=== PATIENT | female | born 1950 | race Caucasian/White ===

== ENCOUNTER → 2024-06-30 13:59 | Outpatient (BNVA) | payer MEDICARE, SELFPAY | PROVIDERS: PCP Student in an Organized Health Care Education/Training Program; Referring Provider Student in an Organized Health Care Education/Training Program; Visit Provider Student in an Organized Health Care Education/Training Program | DX: M16.11 Unilateral primary osteoarthritis, right hip (principal); M17.11 Unilateral primary osteoarthritis, right knee; M23.91 Unspecified internal derangement of right knee | CPT/HCPCS: 99203; 99204 ==

== ENCOUNTER 2024-11-03 14:58 | Outpatient (CLI) | payer MEDICARE, SELFPAY ==
--- NOTE | 2024-11-03 09:53 | DI.RAD_ITS ---
Exam(s) XR PELVIS AP EXAM: XR PELVIS AP CLINICAL HISTORY: PRE OP R HIP. TECHNIQUE: 2D digital imaging was performed. COMPARISON: CR XR HIP MIN 2V RT from 02/28/2024 FINDINGS: Single AP supine view of the pelvis-hips Previously described degenerative changes in the right hip appears similar to 02/28/2024. Significantly less degenerative changes evident in the opposite- left hip. Bone density normal. No osseous lesions. IMPRESSION: Significant degenerative changes in the right hip. DATA REPOSITORY: RADIATION DOSE DELIVERED:
== END 2024-11-03 14:59 | disposition home or self-care (01) ==
LOC: DIORS 14:58
PROVIDERS: PCP Student in an Organized Health Care Education/Training Program; Visit Provider Physician Assistant
DX: Z01.818 Encounter for other preprocedural examination (principal); M16.11 Unilateral primary osteoarthritis, right hip
CPT/HCPCS: 99024; 72170

== ENCOUNTER 2024-11-03 19:16 | Outpatient (REF) | payer MEDICARE, SELFPAY ==
[2024-11-03 15:58] LABS: HCT 40.4 % (36.0-46.0); HGB 13.1 g/dL (11.2-15.7); MCH 29.7 pg (27.0-33.0); MCHC 32.4 % (32.0-36.0); MCV 92 fL (80-95); MPV 10.5 fL (8.0-11.0); Platelet Count 284 10^3/uL (130-400); RBC 4.41 10^6/uL (3.93-5.22); RDW 12.6 % (11.7-14.6); RDW-SD 42.2 fL; WBC 5.23 10^3/uL (4.4-10.8)
[2024-11-03 16:14] LABS: Anion Gap 10.6 mmol/L (3-11); BUN 12 mg/dL (7-18); CO2 25.4 mmol/L (21.0-32.0); Calcium 8.9 mg/dL (8.5-10.1); Chloride 107 mmol/L (98-107); Estimated GFR 92.97 (mL/min/1.73m2); Glucose 98 mg/dL (74-106); Potassium 3.9 mmol/L (3.5-5.1); Sodium 143 mmol/L (136-145)
== END 2024-11-03 19:17 | disposition home or self-care (01) ==
LOC: LBN 19:16
PROVIDERS: PCP Student in an Organized Health Care Education/Training Program; Visit Provider Student in an Organized Health Care Education/Training Program
DX: M16.11 Unilateral primary osteoarthritis, right hip (principal); Z01.818 Encounter for other preprocedural examination
CPT/HCPCS: 80048; 85027

== ENCOUNTER 2024-11-18 05:46 | Day surgery (SDC) | payer MEDICARE, SELFPAY ==
[2024-11-18] VITALS (14 sets, daily range): BP systolic 94–132; BP diastolic 46–98; PULSE 62–71; RESP 6–27; TEMP 36.2–36.8; O2SAT 97–100; BMI 24.1
[2024-11-18] MEDS: Celecoxib 200 MG CAP 400 MG PO (06:23)
[2024-11-18] MEDS: Acetaminophen 500 MG TAB 1000 MG PO (06:24)
[2024-11-18] MEDS: Lactated Ringers 1,000 ML 80 ML IV (06:45)
--- NOTE | 2024-11-18 07:05 | PDOC.DSDIS_ITS ---
Date of service: 11/18/24 Discharge Plan Disposition Patient Disposition: Home Condition: Good Discharge Details Reason For Visit: Right hip DJD Attending Provider: Danny Yoon Primary Care Provider: Mahi Huber Home Meds and New Rx's Prescriptions: New celecoxib [Celebrex] 200 mg capsule 200 mg PO BID PRNQty: 60 0RF Rx Instructions: Take one tablet twice daily for pain and inflammation aspirin 81 mg tablet,delayed release (DR/EC) 81 mg PO BID 30 Days Qty: 60 0RF acetaminophen 500 mg tablet 1,000 mg PO Q8H PRN Qty: 90 0RF Rx Instructions: Take two tablets up to every 8 hours as needed for pain pantoprazole 40 mg tablet,delayed release (DR/EC) 40 mg PO DAILY Qty: 14 0RF Rx Instructions: Take one tablet once daily dexamethasone 4 mg tablet 4 mg PO DAILY Qty: 2 0RF Rx Instructions: Take one tablet once daily for two days oxycodone 5 mg tablet 5 mg PO Q6H PRNQty: 12 0RF Rx Instructions: Take one tablet up to every 6 hours as needed for severe postoperative pain Discharge Instructions Additional Instructions: Total Hip Discharge Instructions Activity: The most important activity is to walk. You should try to take short walks a few times a day. You have no restrictions on movement or positioning, but do not try to force what you do. You will find some stiffness and weakness with hip flexion (lifting your knee). Do not try to strengthen this too early, continue to practice walking and stairs and this will come. - Outpatient physical therapy can be helpful to help return you to a normal gait and improve your flexibility and strength. This can start around 2 weeks. For some patients, it?s not necessary. Usually this is determined at the time of discharge or at the first post-operative visit. - You should wear the GABRIEL hose on both legs for 2 weeks. Dressing: Keep the surgical dressing in place for at least one week. After the first week it may be removed and replace with light gauze and tape or nothing. It may get wet after 3 days but avoid soaking the dressing. If it gets wet, just lightly pat dry. It is important to always keep some gauze between skin folds, especially when you are sitting. Spend some time with the wound exposed when you are lying flat as the incision does wrinkle onto itself. Medications: - You should take Tylenol and an anti-inflammatory Celebrex as your primary pain control medications. If the Celebrex is too expensive or not covered, please call the office for another alternative (Advil/Ibuprofen or Naproxen/Aleve). - You have been prescribed a stronger pain medication Oxycodone for breakthrough pain, take as needed as prescribed. - You have also been prescribed a stomach acid reduction agent Pantoprozole to help reduce stomach acid and reflux. - You have also been prescribed Decadron to help with post-operative nausea and pain. You will take this for two days starting tomorrow. - You will be taking Aspirin 81mg twice a day for DVT prevention unless instructed otherwise. - If you have constipation you should take Colace or Miralax (both [id number]). It takes most people 3-4 days to have a bowel movement. Follow-up: 2 weeks If you have any acute concerns or questions, please do not hesitate to contact the office at [phone]. You may contact Dr. Yoon with any questions after hours through the hospital at [phone] or on his cell phone at [phone]. Referrals: Danny Yoon MD [ [facility] STAFF PHYSICIAN, Orthopaedic Surgical] Equipment/Supplies: Walker Activity:: Elevate Remove Dressings/Wound Care:: Do Not Remove Shower/Bathe:: Cover Diet:: As Tolerated Discharge Orders Discharge Orders: Discharge Order (Routine); Ordered 11/18/24 Ordered By: Janiya Mcallister
--- NOTE | 2024-11-18 07:09 | W.ANESPRE ---
General Info Date of Service Date Performed: 11/18/24 Height: 5 ft 7.5 in Weight: 71 kg Body Mass Index (BMI): 24.1 Surgical Procedure: Operation Date: 11/18/24 07:50 Proposed Procedure Side Surgeon p Hip Total Hip Anterior, Actis Right Danny Yoon MD Meds Allergies and Home Medications Allergies Allergy/AdvReac Type Severity Reaction Status Date / Time No Known Allergies Allergy Verified 11/18/24 06:06 Home Medication ?Medication ?Instructions ?Recorded acetaminophen 500 mg tablet 1,000 mg (2 x 500 mg) PO Q8H PRN 11/18/24 pain #90 tabs aspirin 81 mg tablet,delayed 81 mg PO BID 30 days #60 tabs 11/18/24 release celecoxib 200 mg capsule (Celebrex) 200 mg PO BID PRN #60 caps 11/18/24 dexamethasone 4 mg tablet 4 mg PO DAILY #2 tabs 11/18/24 oxycodone 5 mg tablet 5 mg PO Q6H PRN #12 tabs 11/18/24 pantoprazole 40 mg tablet,delayed 40 mg PO DAILY #14 tabs 11/18/24 release Current Visit Medications: Current Medications Generic Name Dose Route Start Last Admin Trade Name Freq PRN Reason Stop Dose Admin Acetaminophen 1,000 mg 11/18/24 06:00 11/18/24 06:24 Acetaminophen 500 Mg Tab PO 11/18/24 23:59 1,000 mg PREOP KEMI Administration Celecoxib 400 mg 11/18/24 06:00 11/18/24 06:23 Celecoxib 200 Mg Cap PO 11/18/24 23:59 400 mg PREOP KEMI Administration Hydromorphone HCl 0.5 mg 11/18/24 07:02 Hydromorphone 2 Mg/Ml Syr IVP 12/18/24 07:01 Q2H PRN PRN Ringer's Solution 1,000 mls @ 80 mls/hr 11/18/24 06:00 11/18/24 06:45 IV 11/18/24 23:59 80 mls/hr INFUSION KEMI Administration Cefazolin Sodium/Dextrose 2 gm in 50 mls @ 100 mls/hr 11/18/24 06:00 Ancef Duplex IVPB 11/18/24 23:59 PREOP KEMI Tranexamic Acid/Sodium Chloride 1,000 mg in 100 mls @ 600 mls/hr 11/18/24 06:00 IVPB 11/18/24 23:59 PREOP KEMI Cefazolin Sodium/Dextrose 1 gm in 50 mls @ 100 mls/hr 11/18/24 08:00 Ancef Duplex IVPB 11/19/24 00:29 Q8H KEMI IV Miscellaneous Supplies 1 each 11/18/24 06:00 Iv Access IV 11/18/24 23:59 DIRECTED KEMI Oxycodone HCl 0 mg 11/18/24 07:02 Oxycodone 5 Mg Tab PO 12/18/24 07:01 Q3H PRN PRN Pain Sodium Chloride 0 ml 11/18/24 06:00 Normal Saline Flush 10 Ml Syr IV 11/18/24 23:59 PRN PRN Sodium Chloride 0 ml 11/18/24 06:00 Normal Saline 10 Ml Vial IJ 11/18/24 23:59 DIRECTED PRN Sterile Water 0 ml 11/18/24 06:00 Water,Injection,Sterile 10 Ml Vial IJ 11/18/24 23:59 DIRECTED PRN Tranexamic Acid 1,300 mg 11/18/24 07:02 Tranexamic Acid 650 Mg Tab PO 12/18/24 07:01 ONCE PRN postoperative PFSH Active Problems Active Problems: Problem Status Onset Code Internal derangement of right knee Acute M23.91 Degenerative joint disease of right knee Acute M17.11 Inflammatory arthritis Acute M19.90 Diverticula of intestine Acute K57.30 Senile cataract Acute H25.9 Osteoarthritis of right hip Chronic M16.11 Surgical History Surgical History History of dental surgery History of cataract surgery both eyes History of surgery on lower extremity L leg History of surgery on arm L arm Hx of appendectomy Tobacco Smoking/Tobacco Use Status: Never Alcohol Alcohol Intake: current Alcohol intake frequency: 0-2 drinks per day Alcohol type: wine Substance Use Substance use: Occasionally Substance use type: marijuana Details: wine: t-1, one glass. Marijuana: months Vital Signs and Lab Results Lab Results Complete Blood Count: WBC, (4.4-10.8) 5.23 10^3/uL 11/03/24, 10:40 RBC, (3.93-5.22) 4.41 10^6/uL 11/03/24, 10:40 Hgb, (11.2-15.7) 13.1 g/dL 11/03/24, 10:40 Hct, (36.0-46.0) 40.4 % 11/03/24, 10:40 Plt Count, (130-400) 284 10^3/uL 11/03/24, 10:40 Complete Metabolic Panel: Sodium, (136-145) 143 mmol/L 11/03/24, 10:40 Potassium, (3.5-5.1) 3.9 mmol/L 11/03/24, 10:40 Chloride, (98-107) 107 mmol/L 11/03/24, 10:40 Carbon Dioxide, (21.0-32.0) 25.4 mmol/L 11/03/24, 10:40 BUN, (7-18) 12 mg/dL 11/03/24, 10:40 Creatinine, (0.55-1.02) 0.6 mg/dL 11/03/24, 10:40 Est GFR (CKD-EPI 2020), (mL/min/1.73m2) 92.97 11/03/24, 10:40 Calcium, (8.5-10.1) 8.9 mg/dL 11/03/24, 10:40 Glucose, (74-106) 98 mg/dL 11/03/24, 10:40 Anesthesia Assessment and Plan Anesthesia History Personal History: PONV Family History: No Family History of Anesthesia Complications Exercise Tolerance Exercise Tolerance: Metabolic Equivalents>4 Pertinent Negatives Pertinent Negatives: No Symptoms of GERD, No Major Cardiovascular Symptoms or Complaints, No Major Pulmonary Symptoms or Complaints and No History of CVA/TIA Cardiac & Pulmonary Exam Cardiac Exam: Normal S1/S2 Heart Sounds Pulmonary Exam: Clear Bilateral Breath Sounds Implantable Cardiac Device Does patient have a Pacemaker or an ICD?: No Airway Exam Known Difficult Airway: No Mallampati Class: 2 Mouth Opening: Normal (> 3cm) Thyromental Distance: Greater than 3 cm Neck Range of Motion: Full ROM Neck Circumference: Normal Teeth Condition: Normal Dentition ASA Classification ASA Score: ASA 2 Emergency Case?: No NPO Status NPO Status: NPO Clears >2 hours, Solids >8 hours Anesthesia Plan Resuscitation Status: Full Code Anesthesia Technique: Spinal Anesthesia Airway Planned: Natural Airway Monitors Used: Standard Monitors
--- NOTE | 2024-11-18 07:11 | W.PREOPHP ---
Assessment and Plan Assessment and plan (1) Osteoarthritis of right hip: Status: Chronic Assessment and plan: Sharon is a 74-year-old female who has known arthritis about the right hip. She is here today for hip replacement. She has no questions. I once again reviewed hip replacement with her. I discussed the risk of the surgery to include bleeding, infection, pain, stiffness, weakness, tendinitis, bursitis. She has been cleared by her primary care team. We will proceed today with right hip replacement. History of Present Illness History of Present Illness Chief Complaint: Right hip arthritis Narrative: Magalis is a 74-year-old female who is here today for her right hip. She has severe arthritis of the right hip. Please of the previous office notes for complete detailed history. Please see the most recent history and physical performed by the primary care team. She has no new symptoms. No chest pain or shortness of breath. She has no questions about her right hip replacement and is anxious to proceed. Review of Systems All systems reviewed & are unremarkable except as noted in HPI and below PFSH All Active Problems Internal derangement of right knee (Acute) Degenerative joint disease of right knee (Acute) Inflammatory arthritis (Acute) Diverticula of intestine (Acute) Senile cataract (Acute) Osteoarthritis of right hip (Chronic) Surgical History History of dental surgery History of cataract surgery both eyes History of surgery on lower extremity L leg History of surgery on arm L arm Hx of appendectomy Social History Smoking/Tobacco Use Status: Never Smoking risk assessment performed?: Yes Alcohol Intake: current Alcohol Intake frequency: 0-2 drinks per day Alcohol type: wine Drug use: Occasionally Substance use type: marijuana Details: wine: t-1, one glass. Marijuana: months Housing: house Do you feel safe at home: Yes Do you feel safe in your relationship?: Yes Additional Social history: UTAP Meds Allergies and Home Medications Allergies Allergy/AdvReac Type Severity Reaction Status Date / Time No Known Allergies Allergy Verified 11/18/24 06:06 Home Medications ?Medication ?Instructions ?Recorded ?Confirmed ?Type acetaminophen 500 mg tablet 1,000 mg (2 x 500 mg) PO Q8H PRN 11/18/24 Rx pain #90 tabs aspirin 81 mg tablet,delayed 81 mg PO BID 30 days #60 tabs 11/18/24 Rx release celecoxib 200 mg capsule (Celebrex) 200 mg PO BID PRN #60 caps 11/18/24 Rx dexamethasone 4 mg tablet 4 mg PO DAILY #2 tabs 11/18/24 Rx oxycodone 5 mg tablet 5 mg PO Q6H PRN #12 tabs 11/18/24 Rx pantoprazole 40 mg tablet,delayed 40 mg PO DAILY #14 tabs 11/18/24 Rx release Exam Const General: cooperative, healthy appearing, comfortable and no acute distress Resp Effort & Inspection: normal respiratory effort Auscultation: clear to auscultation bilaterally Cardio Rate: regular rate Rhythm: regular rhythm
[2024-11-18] MEDS: ceFAZolin 2 GM/50 ML BAG IVPB (07:28)
[2024-11-18] MEDS: TRANEXAMIC ACID/SOD. CHL. 1,000 MG/100 ML BAG 600 MG IVPB (07:40)
--- NOTE | 2024-11-18 08:41 | ROE_ITS ---
Operative Note Operative Note PRE-OP DIAGNOSIS: Right Hip Osteoarthritis POST-OP DIAGNOSIS: same PROCEDURE: Right Anterior Total Hip Arthroplasty with Intraoperative Navigation SURGEON: Danny Yoon SCHEME TECHNICIAN: Janiya Mcallister ANESTHESIA TYPE: Spinal Refer to Anesthesia Record ESTIMATED BLOOD LOSS: 50 PATHOLOGY: none sent TOURNIQUET TIME: 0 COMPLICATIONS: None Patient was transported to: PACU Patient's condition: stable Implants: 1. Depuy Shawnee Acetabular Component, 52mm 2. Depuy Acetabular Liner, 86y04ft 3. Depuy Actis Standard Collared Femoral Stem, Size 6 4. Depuy Altrx Ceramic Femoral Head, Size 36+8.5mm Indications: I have seen Magalis in clinic for symptoms of hip arthritis, confirmed with radiographic findings. She has exhausted nonoperative methods and was having significant limitations in daily function and desired better function and less pain. I discussed the technical details of a hip replacement. I explained the risks of the procedure to include, but not limited to, bleeding, infection, pain, stiffness, fracture, damage to nerves and vessels, damage to muscles and tendons, loosening, instability, leg length inequality, need for repeat procedure, blood clot and cardiopulmonary demise. Despite these risks, Magalis elected to proceed. Findings: There was significant signs of arthritis throughout the hip. Procedure Description: Magalis was greeted in the preoperative holding area where the correct side was identified and marked. The consent was reviewed with the patient and signed. The history and physical was updated. All questions were answered. She was taken back to the operating room. A spinal anesthestic was then administered. The feet were wrapped with cast padding and Coban and then placed into the boot liners and then into the boots. Care was taken to protect the skin and make sure the heels were fully down and the boots were stable. The patient was then positioned onto the HANA table. Both legs were held in a neutral position. SCDs were applied. The patient was then slid down onto a peroneal post. Prophylactic antibiotics in the form of Cefazolin were administered. 1g of Tranxemic Acid was given intravenously within 30 minutes of incision. The right leg was then prepped with Chloraprep and draped in a standard fashion. A second prep with Chloraprep was performed prior to placement of a shower-curtain type drape with Iodine impregnated skin protection. A timeout to confirm correct identity, side and site, procedure, allergies, anesthesia, and medical concerns was performed. An obliquely oriented incision was made starting lateral to the ASIS and running distal over the Tensor Fascia Dina (TFL) muscle belly toward the fibular head, approximately 10cm. The skin and soft tissue was dissected sharply, through Spencer?s fascia, and to the fascia of the TFL. With the fascia and superior border of the IT band identified, the fascia was incised with a new knife just above any perforators from the IT band. The TFL muscle belly was bluntly dissected away from the fascia and moved laterally. The fat between TFL and rectus was identified to ensure the dissection was not within the TFL. Blunt dissection created space between abductors and the capsule and retractor was placed over the lateral femoral neck. The fibers of the rectus femoris tendon were identified and these were freed from the anterior capsule. A second cobra retractor was placed around the medial femoral neck. The TFL was further retracted laterally to show the deep fascia. Careful dissection through this layer identified three main crossing vessels of the lateral femoral circumflex. These were cauterized in multiple locations and then cut without any noticeable bleeding. The TFL was further released bluntly from the deep fascia to expose anterior hip capsule and fat The soft tissue orthopaedic retractor was then placed beneath the TFL and against sartorius and medial soft tissues to protect and retract the soft tissues. A T-capsulotomy was then performed starting at the superior lateral acetabulum and moving distally to the intertrochanteric ridge. These capsular flaps were tagged with a No. 1 Vicryl and elevated from within. The capsular flaps were released to the shoulder of the lateral neck and to the lesser trochanter to give excellent visualization of the proximal femur. A neck osteotomy was performed using an oscillating saw based on preoperative templates. This cut started in the shoulder and of the lateral neck and exited medially. The saw was at all times directed medially to avoid injury to the greater trochanter. Gross traction was applied to the leg and the osteotomy opened. The femoral head was removed with a corkscrew, making sure to protect the TFL on its exit. Traction was released after head removal. This was measured on the back table to determine the starting reamer size. Portions of the rectus obscuring visualization were minimally elevated off the superior acetabulum. An anterior retractor was placed over the anterior wall between capsule and labrum and attached to the Gripper retraction system. The femur was rotated to 90 degrees and medial capsule was fully released until the lesser trochanter was palpable and visible; the femur was returned to 30 degrees. A posterior retractor was placed similarly between capsule and labrum. This provided excellent visualization. The contents of the cotyloid fossa were removed with electrocautery and the labrum was removed with a knife. There was a notable floor osteophyte. There was significant chondromalacia of the superior acetabulum. Acetabular reaming began with a 48mm reamer. This first reaming was directed anterior to posterior and medial to get down to the true floor. This was inspected and reamed until the true floor was reached. The anterior retractor was then released and entry and exit was provided by traction on the capsular flaps. I then reamed sequentially up to a 52mm reamer where good fit was obtained. The larger reamers were oriented based on anatomical reference of the anterior and lateral stanley to ensure proper abduction and anteversion. Positioning and size was confirmed with the fluoroscopy. A 52mm Depuy Shawnee acetabular component was selected. The acetabulum was reamed around the periphery with the selected acetabular size to prevent a rim fit. The deep tissues were irrigated. The acetabular component was then impacted in a position of about 40-45 degrees of abduction and 15-20 degrees of anteversion, using the patient?s anatomy as the ultimate landmark. Fluoroscopy was used to confirm this. There was excellent carton forming machine tender of the acetabular component and the inserting handle was removed. The acetabular liner, Depuy [id number] polyethylene liner, was inserted and lined up with the tines of the acetabular component. There was no soft tissue interposition. The liner was then impacted into position and confirmed to be well-seated. A portion of the joey-articular cocktail was then injected around the acetabulum into the capsule and periosteum. This cocktail consisted of 123mg of Ropivacaine, 0.25mg of Epinephrine, 0.04mg of Clonidine, and 15mg of Ketorolac, diluted to 50cc. The leg was rotated to 120 degrees. Any remaining medial capsule was released until the lesser trochanter was easily palpable. A retractor was placed medially. The lateral capsule was further released into the shoulder to allow access to the greater trochanter. A Begum retractor was placed over the greater trochanter which allowed the trochanter to flip in front of the capsule for excellent exposure. The leg was brought down into maximal extension and 20 degrees of adduction while ensuring there was no impingement on the acetabulum. Any remnant capsule within the trochanter was released. Piriformis and obturator externis were identified and protected. There was excellent access to the proximal femur. The lateral neck remnant was removed with a rongeur. A blunt canal probe was used to identify the canal and trajectory for later broaching. A box osteotome initiated the broach course. A small curved rasp and a curved curette were used to work laterally. Broaching then began with a starter Actis broach. This was inserted manually around the trochanter and into the canal before mallet blows. The broach was seated to a few millimeters below the cut level based on the neck cut and the preoperative template. Sequential broaching was continued with the Fishidyse pneumatic broaching device until a tight fit was obtained with good rotational control of the femur. A trial standard neck was inserted along with a +5 trial head. The leg was brought out of extension and adduction and then reduced with traction and internal rotation. The leg was stable anteriorly in a position of 30 degrees of extension and 90 degrees of external rotation. Fluoroscopy was used to ensure there was no fracture and the stem was seated well. Leg lengths were checked with an AP pelvis and pelvic reference points. [employer] navigation system was used to confirm appropriate positioning and leg length and offset. This seemed to come close to correcting leg length but it under corrected the offset. However, going up and neck lengths would appropriately correct the offset but overcorrect the leg length. Therefore, advance the broach another 2 to 3 mm and went up to a +8.5 mm head. Once content with the desired offset and leg lengths, the leg was brought back into extension, external rotation and adduction. The periosteum and surrounding tissue was injected with remaining portion of the joey-articular cocktail. The proximal femur was irrigated as well as the deep tissues. The Depuy Actis standard collared stem, size 6, was then manually inserted into the proximal femur making sure to control rotation. It was then malleted into position with light blows, giving breaks to allow bone expansion and decrease risk of fracture. The selected Depuy Altrx Ceramic Head, size 36+8.5mm, was then placed onto the clean and dry trunnion and secured with impaction onto the tapered fit. The leg was brought back out of extension and adduction and reduced with tract ion and internal rotation. Stability was confirmed with no shuck at 90 degrees of external rotation and 30 degrees of extension. No impingement through range of motion arc. Final x-ray images were obtained with fluoroscopy to confirm adequate positioning and no intraoperative fracture. The deep tissues were thoroughly irrigated with Surgiphor, betadine solution. This was allowed to sit in the wound for 3 minutes before being thoroughly irrigated out with normal saline. The capsule was then reapproximated with the previously placed sutures and the indirect head of the rectus was inspected and reapproximated with a #1 Vicryl. The TFL fascia was finally closed with a No. 2 Stratafix, barbed suture. Deep tissues were then reapproximated with 0 Vicryl and a running 2-0 Vicryl. The skin was closed with a running 4-0 Monocryl in a subcuticular fashion. This was reinforced with skin glue. A Mepilex silver dressing was applied. At the end of the case, all counts were correct. Magalis was transferred to the hospital bed without difficulty and suffering no apparent complication. She has a good prognosis. Physical therapy will start today and without restrictions, weight-bearing as tolerated. Aspirin 81mg BID will be used for DVT prophylaxis. Date of Procedure: 11/18/24
--- NOTE | 2024-11-18 08:47 | DI.RAD_ITS ---
Exam(s) XR HIP RT IN OR EXAM: XR HIP RT IN OR CLINICAL HISTORY: osteoarthritis right hip. TECHNIQUE: 2D and realtime digital imaging was performed. COMPARISON: CR XR PELVIS AP from 11/03/2024 FINDINGS: Hard copy images show placement of a right hip prosthesis. The alignment appears satisfactory. Please see procedure note for details. Fluoro time: 28.8seconds RADIATION DOSE DELIVERED: Ka,r=2.78 mGy
--- NOTE | 2024-11-18 10:04 | W.ANESPOSTOP ---
Postoperative Evaluation Date, Time and Location Date Performed: 11/18/24 Time Performed: 10:04 Patient Location: Day Surgery Unit Vital Signs Most Recent Imported Vital Signs: Most Recent Vital Signs Temp Pulse Resp BP Pulse Ox 36.2 C L 64 17 121/65 100 11/18/24 09:32 11/18/24 09:32 11/18/24 09:32 11/18/24 09:32 11/18/24 09:32 Pain Score Most Recent Pain Score: Most Recent Pain Score Pain Level 0 11/18/24 09:32 Assessment Mental Status: Awake (Alert & Oriented to Patient Baseline) Airway and Respiratory Function: Patent airway with normal (patient baseline) respiratory exam Cardiovascular Function: Hemodynamically Stable Hydration Status: Adequately Hydrated Nausea & Vomiting: No Nausea or Vomiting Pain: Pain is tolerable per patient Peripheral Nerve Block: Patient did not receive a nerve block
[2024-11-18] MEDS: Tranexamic Acid 650 MG TAB 1300 MG PO (10:24)
--- NOTE | 2024-11-18 10:57 | IN_ITS ---
PT Notes Visit Reasons: Right hip DJD Physical Therapy Day Surgery Initial Evaluation Date: 11/18/24 Referring Doctor: Janiya Mcallister NP/Dr. Yoon PT Orders: PT CONSULT: Status post Ortho surgery Precautions: WBAT RLE,TEDS x 2 weeks Patient Profile/Admitting Diagnosis: Magalis is a 74-year-old female presenting status post elective right KENDRA under spinal anesthesia by Dr. Yoon on 11/18/2024. Postop uncomplicated PMHX: nternal derangement of right knee (Acute) Degenerative joint disease of right knee (Acute) Inflammatory arthritis (Acute) Diverticula of intestine (Acute) Senile cataract (Acute) Osteoarthritis of right hip (Chronic) Surgical History History of dental surgery History of cataract surgery both eyesHistory of surgery on lower extremity L legHistory of surgery on arm L armHx of appendectomy Social History/Home Situation: Patient resides in two-level home with stairs and left rail to enter home patient able to stay on first floor. She has bedroom and full bath on first floor. She is independent without assistive device. Independent ADLs and homemaking skills. Patient drives. Equipment Owned/DME:4WW Subjective: Patient states she feels well and is eager to get moving so she can go home Objective: [] General Observation: Female presented semireclined ice pack to right hip. Mental Status: Alert and oriented x 4, cooperative, able to follow all instructions, agreeable to participate in evaluation Pain: 4/10 right hip ROM: [] BUE: WNL Right Lower Extremity: Hip flexion 95 degrees, hip abduction 15 degrees, internal rotation to neutral, extension 5 degrees, knee and ankle within normal limits Left Lower Extremity: WNL Strength: [] BUE: 5/5 Right Lower Extremity:Hip flexion: 3 -/5; hip abduction: 2+/5; hip extension: 2+/5; knee extension: 3/5; knee flexion: 3 -/5 ankle DF: 3+/5 ; ankle PF: 3+/5 Left Lower Extremity: 5/5 Sensation:Intact Bed Mobility/Transfers: [] Supine to sit independent Sit to stand supervision with cues to push up from surface Stand to sit supervision with cues to reach back and to lock brakes on 4WW Bed to chair supervision with 4WW Gait: Ambulated with supervision with 4WW 150 feet x 2 reciprocal pattern. Stairs: 3 4 steps? and 2 6 steps with rail LEFT SBA with continuous cues for sequencing step to pattern Balance: [] Static Sitting: Normal Dynamic Sitting: Good plus Static Standing: Normal Dynamic Standing: Good Special Tests: [] Mobility Limitations Standardized Measure [] [facility] AM-PAC 6 clicks Basic Mobility Inpatient Short Form: [] Raw Score: 23 CMS Score: 11.20% Informed Consent/Education: Patient instructed in purpose of PT consult. Treatment: [id number] packet containing KENDRA exercise protocol has been given to patient. Education and training on initial set of 3 reps of exercises that can be done at home have been completed with patient. Assessment: Patient is a 74-year-old female who presents with clinical signs and symptoms consistent with current/admitting diagnoses that have resulted to mobility limitations, gait instability, generalized weakness, and impairment of motor control as demonstrated by the following impairment level findings: 1. Decreased strength to right hip major muscle groups 2. Impaired standing balance 3. Limitation of joint range of motion in right hip 4. Pain right hip 5. Impaired functional activity tolerance and standing Impairments are contributing to the following functional limitations: 1. Inability to safely ambulate without assistive device 2. Increase completion time for mobility ADL performance 3. Increased fall risk 4. Difficulty performing stairs without assistance Patient is assessed as a low complexity based on the following: History: 74-year-old female with impairment level findings, functional limitations, and past medical history as indicated above Examination: Demonstrable impairment in strength, balance, and mobility level with underlying impairments and functional limitations as documented above Presentation: Stable Decision Making: Low Goals: N/A. PT evaluation and 1-2 treatment sessions only for functional mobility training using recommended AD and for HEP instruction. Plan of Care/Treatment Plan: N/A. PT evaluation and 1-2 treatment session only for functional mobility training using recommended AD and for HEP instruction. DISCHARGE RECOMMENDATIONS: Home with HEP and use of 4WW TREATMENT CODE/TIME: [id number], [id number] Thank you for the opportunity to participate in the care of this patient. Sharon Selby, PT [facility]
== END 2024-11-18 11:13 | disposition home or self-care (01) ==
PROVIDERS: PCP Student in an Organized Health Care Education/Training Program; Visit Provider Student in an Organized Health Care Education/Training Program
PROC: (CPT 27130; principal; 2024-11-18 07:30)
DX: M16.11 Unilateral primary osteoarthritis, right hip (principal)
CPT/HCPCS: 20985; 27130; 97110; 97161; 73501; C1776; J0690; J1100; J2003; J2250; J2371; J2401; J2405; J2704

== ENCOUNTER 2024-12-01 11:57 | Outpatient (CLI) | payer MEDICARE, SELFPAY ==
--- NOTE | 2024-12-01 11:00 | DI.RAD_ITS ---
Exam(s) XR HIP RT COMPLETE AP PELVIS EXAM: XR HIP RT COMPLETE AP PELVIS CLINICAL HISTORY: 1ST POST OP R KENDRA. TECHNIQUE: 2D digital imaging was performed. Two images were obtained. AP pelvis and lateral right hip views were obtained. COMPARISON: CR XR PELVIS AP from 11/03/2024 XA XR HIP RT IN OR from 11/18/2024 FINDINGS: BONES: There are stable post operative changes of a right total hip arthroplasty present. No fracture or dislocation. JOINTS: The orthopedic hardware is in good position. No evidence of hardware loosening. SOFT TISSUE: Normal. IMPRESSION: Stable right total hip arthroplasty. DATA REPOSITORY: RADIATION DOSE DELIVERED:
== END 2024-12-01 11:58 | disposition home or self-care (01) ==
LOC: DIORS 11:57
PROVIDERS: PCP Student in an Organized Health Care Education/Training Program; Referring Provider Student in an Organized Health Care Education/Training Program; Visit Provider Physician Assistant
DX: Z47.1 Aftercare following joint replacement surgery (principal); Z96.641 Presence of right artificial hip joint
CPT/HCPCS: 99024; 73502

== ENCOUNTER → 2024-12-29 10:15 | Outpatient (BNVA) | payer MEDICARE, SELFPAY | PROVIDERS: PCP Student in an Organized Health Care Education/Training Program; Referring Provider Student in an Organized Health Care Education/Training Program; Visit Provider Physician Assistant | DX: Z47.1 Aftercare following joint replacement surgery (principal); Z96.641 Presence of right artificial hip joint | CPT/HCPCS: 99024 ==